=== PATIENT | female | born 1945 | race African-American/Black ===

== ENCOUNTER 2021-06-08 10:41 | Day surgery (SDC) | payer MEDICARE, MEDICAID ==
[~2021-06-08] VITALS: Ht 166.4 cm; Wt 82.6 kg
[~2021-06-08 10:41] MED LIST: ASPI-543 PO; ATOR40TA52 PO; CARV25TA55 PO; FURO1TAB31 PO; ISO60SRT PO; SACU1TAB7 PO; SPIR25TA8 PO; TRAZ-181 PO
[2021-06-08] MEDS ORDERED: fentaNYL CITRATE 100 MCG/2 ML VL ONE (11:55)
[2021-06-08] MEDS ORDERED: SODIUM CHL 0.9% 50 ML ONE (11:55)
[2021-06-08] MEDS ORDERED: ANGIOMAX 250 MG VIAL IV ONE (11:55)
[2021-06-08] MEDS ORDERED: MIDAZOLAM HCL 2MG/2ML 2ml VIAL (1mg/ml) ONE (11:55)
[2021-06-08] MEDS ORDERED: IOHEXOL 350 MG/ML 100ML IJ ONE (11:56)
[2021-06-08] MEDS ORDERED: LIDOCAINE 2%HCL (LOCAL ANESTH.) INJ 10ml MDV ONE ×2 (11:56→11:57)
[2021-06-08] MEDS ORDERED: CLOPIDOGREL 300 MG TAB ONE (12:49)
[2021-06-08] MEDS ORDERED: ASPirin 81 mg TAB ONE (12:49)
[2021-06-08] MEDS ORDERED: HYDROcodone-ACET 5/325MG TAB PO PRN (13:45)
== END 2021-06-08 16:25 | disposition home or self-care (01) ==
LOC: CATH 10:41
PROVIDERS: ATTEND Internal Medicine Cardiovascular Disease
DX: I25.10 Atherosclerotic heart disease of native coronary artery without angina pectoris (principal); I11.0 Hypertensive heart disease with heart failure; I50.9 Heart failure, unspecified; E11.42 Type 2 diabetes mellitus with diabetic polyneuropathy; E11.21 Type 2 diabetes mellitus with diabetic nephropathy; E11.59 Type 2 diabetes mellitus with other circulatory complications; I27.20 Pulmonary hypertension, unspecified; E78.5 Hyperlipidemia, unspecified; Z86.79 Personal history of other diseases of the circulatory system; Z82.49 Family history of ischemic heart disease and other diseases of the circulatory system; Z87.891 Personal history of nicotine dependence; Z79.02 Long term (current) use of antithrombotics/antiplatelets; Z79.82 Long term (current) use of aspirin; Z20.822 Contact with and (suspected) exposure to COVID-19
CPT/HCPCS: 36221; 75625; 93456; 93571; C1887; C9600; J0583; J1644; J2001; J2250; J3010; J7030; Q9967; 99152; 99153

== ENCOUNTER → 2021-12-08 | Outpatient (CLI) | payer MEDICARE, MEDICAID | END | disposition home or self-care (01) | LOC: Rad HDHVI 16:08 | PROVIDERS: ATTEND Internal Medicine Cardiovascular Disease | DX: I08.3 Combined rheumatic disorders of mitral, aortic and tricuspid valves (principal); I27.20 Pulmonary hypertension, unspecified; I50.23 Acute on chronic systolic (congestive) heart failure; R07.89 Other chest pain | CPT/HCPCS: 93306 ==

== ENCOUNTER → 2022-03-01 | Outpatient (CLI) | payer MEDICARE, OTHER | END | disposition home or self-care (01) | LOC: Rad HDHVI 15:11 | PROVIDERS: ATTEND Internal Medicine Cardiovascular Disease | DX: I08.3 Combined rheumatic disorders of mitral, aortic and tricuspid valves (principal); R00.2 Palpitations; R07.89 Other chest pain | CPT/HCPCS: 93306 ==

== ENCOUNTER → 2022-03-14 | Outpatient (CLI) | payer MEDICARE ==
[~2022-03-14] MED LIST changes: +CLOP75TA28 PO; +DAPA1TAB4 PO; +POTA-167 PO; +TRIA0.25 PO
[2022-03-14 09:39] VITALS: BP 144/65
[2022-03-14 09:52] VITALS: BP 142/63
[2022-03-14 11:51] LABS: BUN/Creatinine Ratio 19.6; Calcium 9.1 mg/dL (8.5-10.1); Potassium 4.5 mmol/L (3.5-5.1)
[2022-03-14 11:57] LABS: INR 1.09 (0.9-1.15); Partial Thromboplastin Time 36.8 sec (24.6-33.4)
[2022-03-14 12:38] LABS: Basophils # (auto) 0.1 10 ^3/uL (0-0.2); Basophils % (auto) 0.9 % (0.0-2.0); Eosinophils # (auto) 0.4 10 ^3/uL (0-0.8); Eosinophils % (auto) 7.1 % (0.0-7.0); Hematocrit 47.6 % (36.0-46.0); Hemoglobin 14.9 g/dL (12.2-16.2); Lymphocytes # (auto) 1.6 10 ^3/uL (0.4-5.4); Lymphocytes % (auto) 25.6 % (10.0-50.0); Mean Corpuscular Hemoglobin 28.9 pg (28.0-32.0); Mean Corpuscular Hgb Conc. 31.3 g/dL (32.0-36.0); Mean Corpuscular Volume 92.5 fL (80.0-100.0); Monocytes # (auto) 0.8 10 ^3/uL (0-1.3); Monocytes % (auto) 12.2 % (0.0-12.0); Neutrophils # (auto) 3.4 10 ^3/uL (1.6-8.6); Neutrophils % (auto) 54.2 % (37.0-80.0); Nucleated Red Blood Cells % 0.1 %; Red Blood Cells 5.15 10^6/uL (4.0-5.20); Red Cell Distribution Width 15.9 % (11.8-14.3); White Blood Cell 6.3 10^3/uL (4.4-10.8)
== END | disposition home or self-care (01) ==
LOC: Rad HDHVI 09:10
PROVIDERS: ATTEND Internal Medicine Cardiovascular Disease
DX: R79.1 Abnormal coagulation profile (principal)
CPT/HCPCS: 36415; 71046; 80048; 85025; 85610; 85730; 93005; G0463

== ENCOUNTER 2022-03-15 07:25 | Inpatient (IN) | payer MEDICARE, OTHER ==
[~2022-03-15] VITALS: Ht 165.1 cm; Wt 81.5 kg
[2022-03-15] VITALS (10 sets, daily range): BP systolic 118–138; BP diastolic 36–79
[~2022-03-15 07:25] MED LIST changes: -ISO60SRT PO
[2022-03-15] MEDS ORDERED: VANCOMYCIN 1GM/250ML 250 ML IV ONE (08:30)
[2022-03-15] MEDS ORDERED: VANCOMYCIN HCL 1000 MG VL ONE (12:01)
[2022-03-15] MEDS ORDERED: fentaNYL CITRATE 100 MCG/2 ML VL ONE (12:02)
[2022-03-15] MEDS ORDERED: MIDAZOLAM HCL 2MG/2ML 2ml VIAL (1mg/ml) ONE (12:02)
[2022-03-15] MEDS ORDERED: LIDOCAINE 2%HCL (LOCAL ANESTH.) INJ 10ml MDV ONE ×5 (12:02→13:01)
[2022-03-15] MEDS ORDERED: IODIXANOL 320MG/ML 100ML BTL IV ONE (12:21)
[2022-03-15] MEDS ORDERED: MORPHINE SULFATE INJ 2 MG/ml SYRG IV PRN (15:15)
[2022-03-15] MEDS ORDERED: NITROGLYCERIN 0.4 MG SL TAB SL PRN (15:15)
[2022-03-15] MEDS ORDERED: traZODone HCL 50 MG TAB PO PRN (15:30)
[2022-03-15] MEDS ORDERED: PNEUMOCOCCAL VACC POLYS 25 MCG/0.5 ML VIAL IM ONE (18:30)
[2022-03-15] MEDS ORDERED: INFLUENZA QUAD 2022-2023 0.5 ML SYRG IM ONE (18:30)
[2022-03-15] MEDS ORDERED: Sacubitril-Valsartan (Entresto 49-51 mg) 1 TAB PO SCH (22:00)
[2022-03-15] MEDS: CARVEDILOL 12.5 MG TAB PO SCH (22:57)
[2022-03-16 05:00] VITALS: BP 125/33
[2022-03-16 09:00] VITALS: BP 132/52
[2022-03-16] MEDS: SPIRONOLACTONE 25 MG TAB PO SCH (10:47)
[2022-03-16] MEDS: CARVEDILOL 12.5 MG TAB PO SCH ×2 (10:47→22:07)
[2022-03-16] MEDS: FUROSEMIDE 40 MG TAB PO SCH (10:47)
[2022-03-16] MEDS: EMPAGLIFLOZIN 10 MG TAB PO SCH (10:47)
[2022-03-16] MEDS: ATORVASTATIN 20 MG TAB PO SCH (10:48)
[2022-03-16] MEDS: POTASSIUM CHL 10 Meq TABLET PO SCH (10:48)
[2022-03-16] MEDS: SACUBITRIL-VALSARTAN 24mg/26mg TAB PO SCH ×2 (10:48→22:07)
[2022-03-16 13:00] VITALS: BP 119/59
[2022-03-16 17:00] VITALS: BP 126/49
[2022-03-16 20:00] VITALS: BP 127/30
[2022-03-16 22:00] VITALS: BP 127/30
[2022-03-17 05:00] VITALS: BP 126/54
[2022-03-17 08:00] VITALS: BP 155/77
[2022-03-17] MEDS: CARVEDILOL 12.5 MG TAB PO SCH (08:22)
[2022-03-17 09:00] VITALS: BP 155/77
[2022-03-17] MEDS: SACUBITRIL-VALSARTAN 24mg/26mg TAB PO SCH (10:00)
[2022-03-17] MEDS: FUROSEMIDE 40 MG TAB PO SCH (10:00)
[2022-03-17] MEDS: POTASSIUM CHL 10 Meq TABLET PO SCH (10:00)
[2022-03-17] MEDS: ATORVASTATIN 20 MG TAB PO SCH (10:00)
[2022-03-17] MEDS: SPIRONOLACTONE 25 MG TAB PO SCH (10:00)
[2022-03-17] MEDS: EMPAGLIFLOZIN 10 MG TAB PO SCH (10:00)
[2022-03-17 13:00] VITALS: BP 116/51
== END 2022-03-17 12:50 | disposition home or self-care (01) | DRG 227 ==
LOC: CATH 07:25 → TELE 15:13 → TELE-CENTR 18:19
PROVIDERS: ADMIT Internal Medicine Cardiovascular Disease; ATTEND Internal Medicine Cardiovascular Disease
PROC: 0JH609Z Insertion of Cardiac Resynchronization Defibrillator Pulse Generator into Chest Subcutaneous Tissue and Fascia, Open Approach (ICD-10-PCS; principal; 2022-03-15)
PROC: 02HK3KZ Insertion of Defibrillator Lead into Right Ventricle, Percutaneous Approach (ICD-10-PCS; 2022-03-15)
PROC: 02H63KZ Insertion of Defibrillator Lead into Right Atrium, Percutaneous Approach (ICD-10-PCS; 2022-03-15)
PROC: 02HL3KZ Insertion of Defibrillator Lead into Left Ventricle, Percutaneous Approach (ICD-10-PCS; 2022-03-15)
DX: I25.5 Ischemic cardiomyopathy (principal); I50.22 Chronic systolic (congestive) heart failure; I49.5 Sick sinus syndrome; E78.5 Hyperlipidemia, unspecified; I42.0 Dilated cardiomyopathy; I11.0 Hypertensive heart disease with heart failure; Z20.822 Contact with and (suspected) exposure to COVID-19; I25.10 Atherosclerotic heart disease of native coronary artery without angina pectoris; I27.20 Pulmonary hypertension, unspecified; J44.9 Chronic obstructive pulmonary disease, unspecified; Z82.49 Family history of ischemic heart disease and other diseases of the circulatory system; Z87.891 Personal history of nicotine dependence; Z95.5 Presence of coronary angioplasty implant and graft; Z23 Encounter for immunization
CPT/HCPCS: 33225; 33249; 36415; 71045; 71046; 80048; 85025; 85610; 85730; 90686; 93005; 99152; 99153; C1882; G0378; G0463; J2001; J2250; Q9967

== ENCOUNTER → 2022-04-11 | Outpatient (CLI) | payer MEDICARE | END | disposition home or self-care (01) | LOC: Rad HDHVI 09:42 | PROVIDERS: ATTEND Internal Medicine Cardiovascular Disease | DX: I70.201 Unspecified atherosclerosis of native arteries of extremities, right leg (principal); R06.02 Shortness of breath; I10 Essential (primary) hypertension; E78.5 Hyperlipidemia, unspecified | CPT/HCPCS: 93306; 93926 ==

== ENCOUNTER → 2022-05-14 | Outpatient (CLI) | payer MEDICARE ==
[2022-05-14 11:23] VITALS: BP 152/74
[2022-05-14 11:41] VITALS: BP 122/59
== END | disposition home or self-care (01) ==
LOC: Rad HDHVI 11:07
PROVIDERS: ATTEND Internal Medicine Cardiovascular Disease
DX: Z01.818 Encounter for other preprocedural examination (principal); I44.7 Left bundle-branch block, unspecified; I49.3 Ventricular premature depolarization; R94.31 Abnormal electrocardiogram [ECG] [EKG]; I51.7 Cardiomegaly; M47.814 Spondylosis without myelopathy or radiculopathy, thoracic region; R20.2 Paresthesia of skin; I70.213 Atherosclerosis of native arteries of extremities with intermittent claudication, bilateral legs
CPT/HCPCS: 71046; 93005; G0463

== ENCOUNTER 2022-05-17 07:43 | Day surgery (SDC) | payer MEDICARE, OTHER ==
[2022-05-14 13:53] LABS: Basophils # (auto) 0.1 10 ^3/uL (0-0.2); Basophils % (auto) 0.8 % (0.0-2.0); Eosinophils # (auto) 0.3 10 ^3/uL (0-0.8); Eosinophils % (auto) 4.4 % (0.0-7.0); Hematocrit 43.7 % (36.0-46.0); Lymphocytes # (auto) 1.4 10 ^3/uL (0.4-5.4); Lymphocytes % (auto) 18.7 % (10.0-50.0); Mean Corpuscular Hemoglobin 29.1 pg (28.0-32.0); Mean Corpuscular Volume 90.7 fL (80.0-100.0); Monocytes # (auto) 0.7 10 ^3/uL (0-1.3); Neutrophils % (auto) 67.1 % (37.0-80.0); Nucleated Red Blood Cells % 0.2 %; Red Blood Cells 4.82 10^6/uL (4.0-5.20); Red Cell Distribution Width 15.1 % (11.8-14.3); White Blood Cell 7.5 10^3/uL (4.4-10.8)
[2022-05-14 14:11] LABS: INR 1.09 (0.9-1.15); Partial Thromboplastin Time 33.6 sec (24.6-33.4)
[2022-05-14 14:28] LABS: Albumin 3.8 g/dL (3.4-5.0); BUN/Creatinine Ratio 17.6; Bilirubin, Total 0.6 mg/dL (0.2-1.0); Calcium 9.1 mg/dL (8.5-10.1); Potassium 4.4 mmol/L (3.5-5.1)
[~2022-05-17] VITALS: Ht 165.1 cm; Wt 79.8 kg
[2022-05-17] VITALS (8 sets, daily range): BP systolic 95–130; BP diastolic 35–57
[~2022-05-17 07:43] MED LIST changes: -ASPI-543 PO
[2022-05-17] MEDS ORDERED: LIDOCAINE 2%HCL (LOCAL ANESTH.) INJ 10ml MDV ONE ×2 (10:10→10:28)
[2022-05-17] MEDS ORDERED: fentaNYL CITRATE 100 MCG/2 ML VL ONE (10:12)
[2022-05-17] MEDS ORDERED: ANGIOMAX 250 MG VIAL IV ONE ×2 (10:12→11:11)
[2022-05-17] MEDS ORDERED: SODIUM CHL 0.9% 50 ML ONE ×2 (10:13→11:11)
[2022-05-17] MEDS ORDERED: MIDAZOLAM HCL 2MG/2ML 2ml VIAL (1mg/ml) ONE (10:13)
[2022-05-17] MEDS ORDERED: HYDROmorphone HCL 2 MG/ML VL/or syr ONE (11:33)
[2022-05-17] MEDS ORDERED: EPTIFIBATIDE INJ (2MG/ML) 10ML VIAL IV ONE (11:35)
[2022-05-17] MEDS ORDERED: ONDANSETRON HCL 4 MG/2 ML VIAL ONE (14:23)
== END 2022-05-17 14:42 | disposition home or self-care (01) ==
LOC: CATH 07:43
PROVIDERS: ATTEND Internal Medicine Cardiovascular Disease
DX: I70.213 Atherosclerosis of native arteries of extremities with intermittent claudication, bilateral legs (principal); Z79.01 Long term (current) use of anticoagulants; Z20.822 Contact with and (suspected) exposure to COVID-19; I25.5 Ischemic cardiomyopathy
CPT/HCPCS: 36415; 75716; 80053; 85025; 85610; 85730; C1769; C1894; C9764; C9772; J0583; J1170; J1327; J1644; J2001; J2250; J3010; U0003; 99152; 99153; C1725; J2405

== ENCOUNTER → 2022-07-09 | Outpatient (CLI) | payer MEDICARE ==
[~2022-07-09] MED LIST changes: +ASPI-543 PO
[2022-07-09 10:28] VITALS: BP 129/60
[2022-07-09 10:39] VITALS: BP 112/54
== END | disposition home or self-care (01) ==
LOC: Rad HDHVI 10:16
PROVIDERS: ATTEND Internal Medicine Cardiovascular Disease
DX: Z01.810 Encounter for preprocedural cardiovascular examination (principal); R94.31 Abnormal electrocardiogram [ECG] [EKG]; I49.3 Ventricular premature depolarization; I70.212 Atherosclerosis of native arteries of extremities with intermittent claudication, left leg
CPT/HCPCS: 71046; 93005; G0463

== ENCOUNTER 2022-07-12 08:24 | Inpatient (IN) | payer MEDICARE, OTHER ==
[~2022-07-12] VITALS: Ht 165.1 cm; Wt 65.3 kg
[2022-07-12] VITALS (18 sets, daily range): BP systolic 116–144; BP diastolic 48–74
[~2022-07-12 08:24] MED LIST changes: -DAPA1TAB4 PO; +HEPARIN IN NS 1000Units/500mL 1,500 ML ONE; +IOHEXOL 350 MG/ML 100ML IJ ONE; +LIDOCAINE 2%HCL (LOCAL ANESTH.) INJ 20ML MDV ONE; -POTA-167 PO
[2022-07-12 09:20] LABS: BUN/Creatinine Ratio 16.8 (10.0-20.0); Calcium 9.2 mg/dL (8.5-10.1); Potassium 4.3 mmol/L (3.5-5.1)
[2022-07-12 09:22] LABS: Basophils # (auto) 0 10 ^3/uL (0-0.2); Basophils % (auto) 0.6 % (0.0-2.0); Eosinophils # (auto) 0.2 10 ^3/uL (0-0.8); Eosinophils % (auto) 4.2 % (0.0-7.0); Hematocrit 43.8 % (36.0-46.0); INR 1.12 (0.9-1.15); Lymphocytes % (auto) 17.5 % (10.0-50.0); Mean Corpuscular Hemoglobin 28.8 pg (28.0-32.0); Mean Corpuscular Hgb Conc. 32.1 g/dL (32.0-36.0); Mean Corpuscular Volume 89.8 fL (80.0-100.0); Monocytes # (auto) 0.6 10 ^3/uL (0-1.3); Monocytes % (auto) 10.5 % (0.0-12.0); Neutrophils # (auto) 3.9 10 ^3/uL (1.6-8.6); Neutrophils % (auto) 67.2 % (37.0-80.0); Nucleated Red Blood Cells % 0.2 %; Red Blood Cells 4.87 10^6/uL (4.0-5.20); Red Cell Distribution Width 14.7 % (11.8-14.3); White Blood Cell 5.8 10^3/uL (4.4-10.8)
[2022-07-12] MEDS ORDERED: ANGIOMAX 250 MG VIAL IV ONE ×2 (10:38→12:08)
[2022-07-12] MEDS ORDERED: fentaNYL CITRATE 100 MCG/2 ML VL ONE ×2 (10:38→12:08)
[2022-07-12] MEDS ORDERED: SODIUM CHL 0.9% 0 ML ONE (10:39)
[2022-07-12] MEDS ORDERED: MIDAZOLAM HCL 2MG/2ML 2ml VIAL (1mg/ml) ONE ×2 (10:39→12:08)
[2022-07-12] MEDS ORDERED: IOHEXOL 350 MG/ML 100ML IJ ONE ×2 (10:45→12:15)
[2022-07-12] MEDS ORDERED: SODIUM CHL 0.9% 50 ML ONE (12:09)
[2022-07-12] MEDS ORDERED: LIDOCAINE 2%HCL (LOCAL ANESTH.) INJ 20ML MDV ONE (12:15)
[2022-07-12] MEDS ORDERED: IODIXANOL 320MG/ML 100ML BTL IV ONE (12:48)
[2022-07-12] MEDS ORDERED: MORPHINE SULFATE INJ 2 MG/ml SYRG IV PRN (14:45)
[2022-07-12] MEDS ORDERED: NITROGLYCERIN 0.4 MG SL TAB SL PRN (14:45)
[2022-07-12] MEDS ORDERED: ACETAMINOPHEN/CODEINE#3 (300/30mg) TAB ONE (14:56)
[2022-07-12] MEDS: ACETAMINOPHEN/CODEINE#3 (300/30mg) TAB PO PRN ×2 (14:58→22:15)
[2022-07-12] MEDS ORDERED: traZODone HCL 50 MG TAB PO PRN (15:00)
[2022-07-12] MEDS ORDERED: TRIAZOLAM 0.25 MG PO PRN (15:00)
[2022-07-12] MEDS: SODIUM CHLOR 0.9% PF (SALINE LOCK) 10ML VIAL/SYR IV SCH (22:00)
[2022-07-12] MEDS: SACUBITRIL VALSARTAN PO SCH (22:00)
[2022-07-12] MEDS: CARVEDILOL 12.5 MG TAB PO SCH (22:19)
[2022-07-12] MEDS: ATORVASTATIN 20 MG TAB PO SCH (22:19)
[2022-07-13] VITALS (8 sets, daily range): BP systolic 88–123; BP diastolic 45–79
[2022-07-13] MEDS: SODIUM CHLOR 0.9% PF (SALINE LOCK) 10ML VIAL/SYR IV SCH ×3 (05:56→22:00)
[2022-07-13] MEDS: SACUBITRIL VALSARTAN PO SCH ×2 (10:00→22:00)
[2022-07-13] MEDS: FUROSEMIDE 40 MG TAB PO SCH (10:11)
[2022-07-13] MEDS: ASPirin-EC 81 mg tab PO SCH (10:11)
[2022-07-13] MEDS: SPIRONOLACTONE 25 MG TAB PO SCH (10:12)
[2022-07-13] MEDS: CLOPIDOGREL BISULFATE 75 MG TAB PO SCH (10:12)
[2022-07-13] MEDS: CARVEDILOL 12.5 MG TAB PO SCH ×2 (10:13→22:00)
[2022-07-13] MEDS: ATORVASTATIN 20 MG TAB PO SCH (22:21)
[2022-07-13] MEDS: ACETAMINOPHEN/CODEINE#3 (300/30mg) TAB PO PRN (22:23)
[2022-07-14 05:00] VITALS: BP 100/56
[2022-07-14] MEDS: SODIUM CHLOR 0.9% PF (SALINE LOCK) 10ML VIAL/SYR IV SCH (06:00)
[2022-07-14 08:00] VITALS: BP 125/57
[2022-07-14] MEDS: ASPirin-EC 81 mg tab PO SCH (09:04)
[2022-07-14] MEDS: FUROSEMIDE 40 MG TAB PO SCH (09:05)
[2022-07-14] MEDS: SPIRONOLACTONE 25 MG TAB PO SCH (09:05)
[2022-07-14] MEDS: CLOPIDOGREL BISULFATE 75 MG TAB PO SCH (09:05)
[2022-07-14] MEDS: CARVEDILOL 12.5 MG TAB PO SCH (09:05)
[2022-07-14 12:00] VITALS: BP 136/49
[2022-07-14 12:30] VITALS: BP 125/57
== END 2022-07-14 14:23 | disposition home or self-care (01) | DRG 271 ==
LOC: CATH 08:24 → OVERFLOW 14:48 → WEST WING 18:27
PROVIDERS: ADMIT Internal Medicine Cardiovascular Disease; ATTEND Internal Medicine Cardiovascular Disease
PROC: 047L3ZZ Dilation of Left Femoral Artery, Percutaneous Approach (ICD-10-PCS; principal; 2022-07-12)
PROC: 04CD3ZZ Extirpation of Matter from Left Common Iliac Artery, Percutaneous Approach (ICD-10-PCS; 2022-07-12)
PROC: 04CL3ZZ Extirpation of Matter from Left Femoral Artery, Percutaneous Approach (ICD-10-PCS; 2022-07-12)
PROC: 04FL3ZZ Fragmentation of Left Femoral Artery, Percutaneous Approach (ICD-10-PCS; 2022-07-12)
PROC: 04CL3ZZ Extirpation of Matter from Left Femoral Artery, Percutaneous Approach (ICD-10-PCS; 2022-07-12)
PROC: 04CN3ZZ Extirpation of Matter from Left Popliteal Artery, Percutaneous Approach (ICD-10-PCS; 2022-07-12)
PROC: B41FYZZ Fluoroscopy of Right Lower Extremity Arteries using Other Contrast (ICD-10-PCS; 2022-07-12)
PROC: B41GYZZ Fluoroscopy of Left Lower Extremity Arteries using Other Contrast (ICD-10-PCS; 2022-07-12)
DX: E11.51 Type 2 diabetes mellitus with diabetic peripheral angiopathy without gangrene (principal); I13.0 Hypertensive heart and chronic kidney disease with heart failure and stage 1 through stage 4 chronic kidney disease, or unspecified chronic kidney disease; I50.22 Chronic systolic (congestive) heart failure; I25.5 Ischemic cardiomyopathy; E11.22 Type 2 diabetes mellitus with diabetic chronic kidney disease; I25.10 Atherosclerotic heart disease of native coronary artery without angina pectoris; E78.5 Hyperlipidemia, unspecified; E66.9 Obesity, unspecified; N18.30 Chronic kidney disease, stage 3 unspecified; Z82.49 Family history of ischemic heart disease and other diseases of the circulatory system; Z95.810 Presence of automatic (implantable) cardiac defibrillator
CPT/HCPCS: 36415; 80048; 85025; 85610; 99152; 99153; C1725; G0378; J2250; Q9967

== ENCOUNTER → 2022-10-01 | Outpatient (CLI) | payer MEDICARE, OTHER ==
[~2022-10-01] MED LIST changes: +DAPA1TAB4 PO; -HEPARIN IN NS 1000Units/500mL 1,500 ML ONE; +IBUP200C14 PO; -IOHEXOL 350 MG/ML 100ML IJ ONE; +ISOS1TAB37 PO; -LIDOCAINE 2%HCL (LOCAL ANESTH.) INJ 20ML MDV ONE; +LORA-655 PO
[2022-10-01 13:40] VITALS: BP 122/65; PULSE 93; RESP 18; O2SAT 97
[2022-10-01 14:13] VITALS: BP 124/73; PULSE 90; RESP 18; O2SAT 97
== END | disposition home or self-care (01) ==
LOC: CHF HDHVI 13:32
PROVIDERS: ATTEND Internal Medicine Cardiovascular Disease
DX: Z01.818 Encounter for other preprocedural examination (principal); I44.7 Left bundle-branch block, unspecified; R94.31 Abnormal electrocardiogram [ECG] [EKG]; I48.91 Unspecified atrial fibrillation; I11.0 Hypertensive heart disease with heart failure; I50.23 Acute on chronic systolic (congestive) heart failure; R06.02 Shortness of breath; I73.9 Peripheral vascular disease, unspecified; I25.5 Ischemic cardiomyopathy
CPT/HCPCS: 93005; G0463

== ENCOUNTER 2022-10-09 11:04 | Inpatient (IN) | payer MEDICARE, OTHER ==
[2022-10-01 14:52] LABS: Basophils # (auto) 0.1 10 ^3/uL (0-0.2); Basophils % (auto) 0.8 % (0.0-2.0); Eosinophils # (auto) 0.2 10 ^3/uL (0-0.8); Eosinophils % (auto) 2.6 % (0.0-7.0); Hematocrit 41.3 % (36.0-46.0); Lymphocytes # (auto) 1.4 10 ^3/uL (0.4-5.4); Lymphocytes % (auto) 17.1 % (10.0-50.0); Mean Corpuscular Hemoglobin 27.6 pg (28.0-32.0); Mean Corpuscular Hgb Conc. 31.5 g/dL (32.0-36.0); Mean Corpuscular Volume 87.4 fL (80.0-100.0); Monocytes # (auto) 0.7 10 ^3/uL (0-1.3); Monocytes % (auto) 8.6 % (0.0-12.0); Neutrophils # (auto) 5.6 10 ^3/uL (1.6-8.6); Neutrophils % (auto) 70.9 % (37.0-80.0); Red Blood Cells 4.73 10^6/uL (4.0-5.20); Red Cell Distribution Width 17.2 % (11.8-14.3); White Blood Cell 7.9 10^3/uL (4.4-10.8)
[2022-10-01 15:08] LABS: INR 1.19 (0.9-1.15); Partial Thromboplastin Time 33.1 SEC (24.5-34.5)
[2022-10-01 16:28] LABS: BUN/Creatinine Ratio 18.6 (10.0-20.0); Calcium 8.9 mg/dL (8.5-10.1); Potassium 4.1 mmol/L (3.5-5.1)
[~2022-10-09] VITALS: Ht 165.1 cm; Wt 82.7 kg
[2022-10-09 15:45] VITALS: BP 157/66; PULSE 66; RESP 12; TEMP 97.7; O2SAT 100
[2022-10-09] MEDS ORDERED: CLOPIDOGREL BISULFATE 75 MG TAB PO ONE (16:15)
[2022-10-09] MEDS ORDERED: ASPirin 81 mg TAB PO ONE (16:15)
[2022-10-09 18:50] VITALS: BP 126/78; PULSE 86; RESP 18; TEMP 97.8; O2SAT 98
[2022-10-09 20:00] VITALS: BP 144/46; PULSE 71; PULSE 84; RESP 18; RESP 19; TEMP 98; O2SAT 98
[2022-10-09] MEDS: ATORVASTATIN 20 MG TAB PO SCH (21:20)
[2022-10-09] MEDS: CARVEDILOL 12.5 MG TAB PO SCH (21:20)
[2022-10-09 22:00] VITALS: BP 144/46; PULSE 71; RESP 19; TEMP 98.1; O2SAT 100
[2022-10-10] VITALS (13 sets, daily range): BP systolic 104–145; BP diastolic 50–62; PULSE 61–86; RESP 12–22; TEMP 97.4–98.9; O2SAT 98–100
[2022-10-10] MEDS ORDERED: IOHEXOL 350 MG/ML 100ML IJ ONE ×2 (07:27→08:39)
[2022-10-10] MEDS ORDERED: LIDOCAINE 2%HCL (LOCAL ANESTH.) INJ 20ML MDV ONE (07:27)
[2022-10-10] MEDS ORDERED: IODIXANOL 320MG/ML 100ML BTL IV ONE ×2 (07:27→08:37)
[2022-10-10] MEDS ORDERED: fentaNYL CITRATE 100 MCG/2 ML VL ONE (08:29)
[2022-10-10] MEDS ORDERED: ANGIOMAX 250 MG VIAL IV ONE (08:29)
[2022-10-10] MEDS ORDERED: MIDAZOLAM HCL 2MG/2ML 2ml VIAL (1mg/ml) ONE (08:30)
[2022-10-10] MEDS ORDERED: SODIUM CHL 0.9% 50 ML ONE (08:30)
[2022-10-10] MEDS ORDERED: CLOPIDOGREL BISULFATE 75 MG TAB ONE (09:47)
[2022-10-10] MEDS ORDERED: ASPirin 81 mg TAB ONE (09:47)
[2022-10-10] MEDS: CLOPIDOGREL BISULFATE 75 MG TAB PO SCH (09:50)
[2022-10-10] MEDS: ASPirin 81 mg TAB PO SCH (09:53)
[2022-10-10] MEDS ORDERED: HYDROmorphone HCL 2 MG/ML VL/or syr IV ONE (11:15)
[2022-10-10] MEDS: ATORVASTATIN 20 MG TAB PO SCH (21:47)
[2022-10-10] MEDS: CARVEDILOL 12.5 MG TAB PO SCH (21:47)
[2022-10-11 05:25] VITALS: BP 121/42; PULSE 65; RESP 20; TEMP 97.6; O2SAT 100
[2022-10-11 08:00] VITALS: BP 106/64; PULSE 65; RESP 20; TEMP 97.9; O2SAT 98
[2022-10-11 09:00] VITALS: BP 106/64; PULSE 65; RESP 20; TEMP 97.9; O2SAT 95
[2022-10-11] MEDS: ASPirin 81 mg TAB PO SCH (09:44)
[2022-10-11] MEDS: CLOPIDOGREL BISULFATE 75 MG TAB PO SCH (09:44)
[2022-10-11 13:00] VITALS: BP 135/48; PULSE 64; RESP 18; TEMP 97.8; O2SAT 100
[2022-10-11 13:54] VITALS: BP 135/87; PULSE 64; RESP 18; TEMP 97.8
[2022-10-11] MEDS: CARVEDILOL 12.5 MG TAB PO SCH (14:02)
== END 2022-10-11 15:35 | disposition home or self-care (01) | DRG 271 ==
LOC: CATH 11:04 → OVERFLOW 14:27 → EAST 16:32
PROVIDERS: ADMIT Internal Medicine Cardiovascular Disease; ATTEND Internal Medicine Cardiovascular Disease
PROC: 04FK3ZZ Fragmentation of Right Femoral Artery, Percutaneous Approach (ICD-10-PCS; principal; 2022-10-10)
PROC: 04CC3ZZ Extirpation of Matter from Right Common Iliac Artery, Percutaneous Approach (ICD-10-PCS; 2022-10-10)
PROC: 04CK3ZZ Extirpation of Matter from Right Femoral Artery, Percutaneous Approach (ICD-10-PCS; 2022-10-10)
PROC: 04FC3ZZ Fragmentation of Right Common Iliac Artery, Percutaneous Approach (ICD-10-PCS; 2022-10-10)
PROC: 04FM3ZZ Fragmentation of Right Popliteal Artery, Percutaneous Approach (ICD-10-PCS; 2022-10-10)
PROC: 04CM3ZZ Extirpation of Matter from Right Popliteal Artery, Percutaneous Approach (ICD-10-PCS; 2022-10-10)
PROC: B41G1ZZ Fluoroscopy of Left Lower Extremity Arteries using Low Osmolar Contrast (ICD-10-PCS; 2022-10-10)
PROC: B41F1ZZ Fluoroscopy of Right Lower Extremity Arteries using Low Osmolar Contrast (ICD-10-PCS; 2022-10-10)
DX: E11.51 Type 2 diabetes mellitus with diabetic peripheral angiopathy without gangrene (principal); I13.0 Hypertensive heart and chronic kidney disease with heart failure and stage 1 through stage 4 chronic kidney disease, or unspecified chronic kidney disease; I50.22 Chronic systolic (congestive) heart failure; I25.5 Ischemic cardiomyopathy; I25.10 Atherosclerotic heart disease of native coronary artery without angina pectoris; N18.9 Chronic kidney disease, unspecified; E11.22 Type 2 diabetes mellitus with diabetic chronic kidney disease; E78.5 Hyperlipidemia, unspecified; Z80.6 Family history of leukemia; Z82.49 Family history of ischemic heart disease and other diseases of the circulatory system; Z95.810 Presence of automatic (implantable) cardiac defibrillator
CPT/HCPCS: 36415; 37225; 37229; 75716; 80048; 85025; 85610; 85730; 86850; 86900; 86901; 99152; C1725; G0378; J2250; Q9967

== ENCOUNTER 2022-12-06 08:45 | Inpatient (IN) | payer MEDICARE, OTHER ==
[2022-12-05 11:44] LABS: Basophils # (auto) 0.1 10 ^3/uL (0-0.2); Basophils % (auto) 1.1 % (0.0-2.0); Eosinophils # (auto) 0.4 10 ^3/uL (0-0.8); Eosinophils % (auto) 5.7 % (0.0-7.0); Hematocrit 34.3 % (36.0-46.0); Lymphocytes # (auto) 1.4 10 ^3/uL (0.4-5.4); Lymphocytes % (auto) 20.4 % (10.0-50.0); Mean Corpuscular Hemoglobin 28.3 pg (28.0-32.0); Mean Corpuscular Hgb Conc. 31.9 g/dL (32.0-36.0); Mean Corpuscular Volume 88.8 fL (80.0-100.0); Monocytes # (auto) 0.6 10 ^3/uL (0-1.3); Monocytes % (auto) 9.1 % (0.0-12.0); Neutrophils # (auto) 4.3 10 ^3/uL (1.6-8.6); Neutrophils % (auto) 63.7 % (37.0-80.0); Nucleated Red Blood Cells % 0.2 %; Red Blood Cells 3.86 10^6/uL (4.0-5.20); White Blood Cell 6.7 10^3/uL (4.4-10.8)
[2022-12-05 12:01] LABS: INR 1.14 (0.9-1.15); Partial Thromboplastin Time 30.5 SEC (24.5-34.5); Prothrombin Time 11.9 sec (9.3-11.8)
[2022-12-05 12:13] LABS: Chloride 110 mmol/L (98-107); Potassium 4.2 mmol/L (3.5-5.1); Sodium 142 mmol/L (136-145)
[2022-12-05 12:14] LABS: Calcium 9.4 mg/dL (8.7-10.4)
[2022-12-05 12:19] LABS: BUN/Creatinine Ratio 12.5 (10.0-20.0); Blood Urea Nitrogen 16 mg/dL (9-23); Glucose 134 mg/dL (74-106)
[2022-12-05 12:35] LABS: Anion Gap 7 (5-15); Carbon Dioxide 25 mmol/L (20-30)
[~2022-12-06] VITALS: Ht 165.1 cm; Wt 80.2 kg
[2022-12-06] VITALS (11 sets, daily range): BP systolic 105–153; BP diastolic 42–61; PULSE 61–83; RESP 12–20; TEMP 97.8–98; O2SAT 90–100
[~2022-12-06 08:45] MED LIST changes: +ACET-1304 PO; +APIX5TAB PO; -ASPI-543 PO; +CHOL20007 PO; +DOCU1CAP46 PO; -SPIR25TA8 PO; -TRIA0.25 PO
[2022-12-06] MEDS ORDERED: fentaNYL CITRATE 100 MCG/2 ML VL ONE (11:02)
[2022-12-06] MEDS ORDERED: GLYCOPYRROLATE 0.2 MG/ML 1ML VIAL ONE (11:02)
[2022-12-06] MEDS ORDERED: MIDAZOLAM HCL 2MG/2ML 2ml VIAL (1mg/ml) ONE (11:02)
[2022-12-06] MEDS ORDERED: IOHEXOL 350 MG/ML 100ML IJ ONE (11:02)
[2022-12-06] MEDS ORDERED: LIDOCAINE 2%HCL (LOCAL ANESTH.) INJ 20ML MDV ONE (11:03)
[2022-12-06] MEDS ORDERED: ANGIOMAX 250 MG VIAL IV ONE (11:03)
[2022-12-06] MEDS ORDERED: SODIUM CHL 0.9% 50 ML ONE (11:03)
[2022-12-06] MEDS ORDERED: CLOPIDOGREL BISULFATE 75 MG TAB ONE (11:52)
[2022-12-06] MEDS ORDERED: NITROGLYCERIN 0.4MG/DOSE SPRAY 4.9GM ONE (12:09)
[2022-12-06] MEDS ORDERED: MORPHINE SULFATE INJ 2 MG/ml SYRG IV PRN (12:45)
[2022-12-06] MEDS ORDERED: NITROGLYCERIN 0.4 MG SL TAB SL PRN (12:45)
[2022-12-06] MEDS ORDERED: HYDROmorphone HCL 2 MG/ML VL/or syr ONE (12:54)
[2022-12-06] MEDS ORDERED: HYDROmorphone HCL 2 MG/ML VL/or syr IM ONE (13:15)
[2022-12-06] MEDS ORDERED: traZODone HCL 50 MG TAB PO PRN (13:45)
[2022-12-06] MEDS: ACETAMINOPHEN 500 MG TAB PO SCH ×2 (18:00→22:24)
[2022-12-06] MEDS: APIXABAN 5 MG TAB PO SCH (21:07)
[2022-12-07 05:00] VITALS: BP 127/47; PULSE 66; RESP 14; TEMP 98.1; O2SAT 100
[2022-12-07] MEDS: ACETAMINOPHEN 500 MG TAB PO SCH ×3 (05:36→18:01)
[2022-12-07 08:00] VITALS: BP 131/36; PULSE 56; PULSE 61; PULSE 71; RESP 18; RESP 20; TEMP 98.7; O2SAT 100; O2SAT 97
[2022-12-07] MEDS: APIXABAN 5 MG TAB PO SCH (09:58)
[2022-12-07] MEDS ORDERED: CLOPIDOGREL BISULFATE 75 MG TAB PO SCH (10:00)
[2022-12-07] MEDS ORDERED: DOCUSATE SOD 100 MG CAP PO SCH (10:00)
[2022-12-07] MEDS ORDERED: FUROSEMIDE 40 MG TAB PO SCH (10:00)
[2022-12-07] MEDS ORDERED: LORazepam 0.5 MG TAB PO SCH (10:00)
[2022-12-07 13:00] VITALS: BP 99/45; PULSE 61; RESP 20; TEMP 98.3; O2SAT 97
[2022-12-07 17:00] VITALS: BP 121/44; PULSE 76; RESP 18; TEMP 97.6; O2SAT 96
[2022-12-07 17:03] VITALS: BP 121/44; PULSE 76; RESP 18; TEMP 97.6; O2SAT 96
[2022-12-07 19:01] VITALS: TEMP 98
== END 2022-12-07 19:48 | disposition home or self-care (01) | DRG 35 ==
LOC: CATH 08:45 → TELE 12:46 → TELE-WESTW 14:49
PROVIDERS: ADMIT Internal Medicine Cardiovascular Disease; ATTEND Internal Medicine Cardiovascular Disease
PROC: B41F1ZZ Fluoroscopy of Right Lower Extremity Arteries using Low Osmolar Contrast (ICD-10-PCS; principal; 2022-12-06)
PROC: B3151ZZ Fluoroscopy of Bilateral Common Carotid Arteries using Low Osmolar Contrast (ICD-10-PCS; 2022-12-06)
PROC: 037L3DZ Dilation of Left Internal Carotid Artery with Intraluminal Device, Percutaneous Approach (ICD-10-PCS; 2022-12-06)
DX: I65.22 Occlusion and stenosis of left carotid artery (principal); I69.354 Hemiplegia and hemiparesis following cerebral infarction affecting left non-dominant side; I73.9 Peripheral vascular disease, unspecified; I25.5 Ischemic cardiomyopathy; I10 Essential (primary) hypertension; I25.10 Atherosclerotic heart disease of native coronary artery without angina pectoris; I48.0 Paroxysmal atrial fibrillation; Z87.891 Personal history of nicotine dependence; Z95.810 Presence of automatic (implantable) cardiac defibrillator
CPT/HCPCS: 36415; 80048; 85025; 85610; 85730; 93005; 99152; G0378; G0463; J2250

== ENCOUNTER → 2023-08-19 | Outpatient (CLI) | payer MEDICARE, OTHER ==
[~2023-08-19] MED LIST changes: +MAGNESIUM SULFATE 1GM/100ML 100 ML IV ONE
[2023-08-19 12:38] VITALS: BP 144/51; PULSE 82; RESP 22; O2SAT 100
[2023-08-19] MEDS: MAGNESIUM SULFATE 1 GM/100 ML IV ONE (13:02)
[2023-08-19] MEDS: MAGNESIUM SULFATE 1GM/100ML 100 ML IV SCH (13:06)
[2023-08-19 17:02] VITALS: BP 154/66; PULSE 73; RESP 20; O2SAT 97
== END | disposition home or self-care (01) ==
LOC: Rad HDHVI 12:27
PROVIDERS: ATTEND Internal Medicine Cardiovascular Disease
DX: E83.42 Hypomagnesemia (principal); R06.02 Shortness of breath; I13.0 Hypertensive heart and chronic kidney disease with heart failure and stage 1 through stage 4 chronic kidney disease, or unspecified chronic kidney disease; E11.22 Type 2 diabetes mellitus with diabetic chronic kidney disease; I50.22 Chronic systolic (congestive) heart failure; N18.9 Chronic kidney disease, unspecified; I25.10 Atherosclerotic heart disease of native coronary artery without angina pectoris; I25.5 Ischemic cardiomyopathy; I48.0 Paroxysmal atrial fibrillation; E11.51 Type 2 diabetes mellitus with diabetic peripheral angiopathy without gangrene; E78.5 Hyperlipidemia, unspecified; Z87.891 Personal history of nicotine dependence; Z95.810 Presence of automatic (implantable) cardiac defibrillator
CPT/HCPCS: 71046; 93005; 96365; 96366; G0463; J3475